=== PATIENT | male | born 1950 | race Caucasian/White ===

== ENCOUNTER 2022-10-02 08:43 | Observation (INO) ==
[2022-10-02] MEDS ORDERED: NS 0.9% 1000 ml BAG 1,000 ML IV ONE ×3 (10:13→13:31)
[2022-10-02] MEDS ORDERED: Dextrose 50% Syringe 50 ml 25 GM/50 ML SYRINGE IV PUSH PRN ×3 (10:18→15:29)
[2022-10-02 10:43] LABS: ABS Eosinophils 0.1 10^3/ul (0-0.6); ABS Lymphocytes 1.4 10^3/ul (1.0-4.8); ABS Monocytes 0.4 10^3/ul (0-0.8); ABS Neutrophils 4.6 10^3/ul (1.5-7.7); Eosinophil % 0.9 %; Hematocrit 38 % (42-52); Hemoglobin 12.3 g/dL (14.0-18.0); Lymphocyte % 21.9 %; Mean Corpuscular HGB Conc 33 g/dL (31-36); Mean Corpuscular Hemoglobin 30 pg (27-31); Mean Corpuscular Volume 91 fL (80-94); Mean Platelet Volume 8.3 fL (7.4-10.4); Platelet Count 291 10^3/uL (150-450); Red Blood Count 4.14 10^6 /uL (4.18-5.48); Red Cell Distribution Width 13 % (10-15); Venous Bicarbonate HCO3 25.6 mmol/L (24-28); White Blood Count 6.6 10^3/uL (3.5-10.8)
[2022-10-02] MEDS ORDERED: Insulin Infusion 100unit/100mL 100 UNIT/100 ML BAG IV SCH (11:00)
[2022-10-02 11:40] LABS: Urine Appearance Cloudy; Urine Bilirubin Negative (Negative); Urine Blood Negative (Negative); Urine Color Straw; Urine Glucose 3+(>=500 mg/dL) (Negative); Urine Ketones Negative (Negative); Urine Nitrite Negative (Negative); Urine Protein Negative (Negative); Urine Specific Gravity 1.025 (1.002-1.030); Urine Urobilinogen Negative (Negative)
[2022-10-02 11:40] LABS: ALT 17 U/L (7-52); AST 16 U/L (13-39); Albumin 3.4 g/dL (3.2-5.2); Albumin/Globulin Ratio 1.1 (1-3); Alcohol, S < 13 mg/dL (<13); Alkaline Phosphatase 87 U/L (35-149); Anion Gap 5 mmol/L (2-11); Blood Urea Nitrogen 11 mg/dL (6-24); C Reactive Protein 20.96 mg/L (<8.01); CO2 Carbon Dioxide 28 mmol/L (22-32); Calcium 9.4 mg/dL (8.6-10.3); Chloride 93 mmol/L (101-111); Lipase 33 U/L (11.0-82.0); Magnesium 1.9 mg/dL (1.9-2.7); Potassium 4.6 mmol/L (3.5-5.0); Sodium 126 mmol/L (135-145); Total Protein 6.4 g/dL (6.4-8.9); eGFR CKD-EPI 49.8 (>60)
[2022-10-02 11:54] LABS: Glucose 711 mg/dL (70-100)
[2022-10-02 12:07] LABS: Urine Bacteria Absent (Absent); Urine Red Blood Cell 1+(3-5/hpf) (Absent); Urine Squamous Epithelial Cell Present (Absent); Urine White Blood Cell 1+(6-10/hpf) (Absent)
[2022-10-02 12:47] LABS: Osmolality Serum 309 mOsm/kg (275-295)
[2022-10-02] MEDS: KCL 20 MEQ/100 ML IVPREMIX 20 MEQ/100 ML BAG IV SCH ×2 (13:05→14:55)
[2022-10-02] MEDS ORDERED: Insulin GLARGINE 100 un/ml 10 ml VIAL SUBCUT ONE (15:16)
[2022-10-02] MEDS ORDERED: Thiamine 100 MG/ML 2 ml VIAL (200 mg) IM ONE (15:18)
[2022-10-02 16:01] LABS: Folate 8.69 ng/mL (5.90-24.80)
[2022-10-02 16:02] LABS: Vitamin B12 1320 pg/mL (180-914)
[2022-10-02 16:45] LABS: Glucose Confirmatory 482 mg/dL (70-100)
[2022-10-02] MEDS: Enoxaparin 30 MG/0.3 ML SYR SUBCUT SCH (17:04)
[2022-10-02] MEDS: Multivitamins/Minerals TAB PO SCH (18:07)
[2022-10-02 20:56] LABS: Calcium 7.9 mg/dL (8.6-10.3); Creatinine, Serum 1.19 mg/dL (0.67-1.17); Potassium 3.7 mmol/L (3.5-5.0); eGFR CKD-EPI 65.7 (>60)
[2022-10-03] MEDS ORDERED: Insulin GLARGINE 100 un/ml 10 ml VIAL SUBCUT SCH (09:00)
[2022-10-03] MEDS: Insulin GLARGINE 100 un/ml 10 ml VIAL SUBCUT SCH (09:14)
[2022-10-03] MEDS: Multivitamins/Minerals TAB PO SCH (09:14)
[2022-10-03 11:36] LABS: Calcium 8.6 mg/dL (8.6-10.3); Creatinine, Serum 1.37 mg/dL (0.67-1.17); Potassium 4.5 mmol/L (3.5-5.0); eGFR CKD-EPI 55.5 (>60)
[2022-10-03] MEDS: Enoxaparin 30 MG/0.3 ML SYR SUBCUT SCH (15:12)
[2022-10-03] MEDS ORDERED: Insulin GLARGINE 100 un/ml 10 ml VIAL SUBCUT ONE (17:45)
[2022-10-04 08:30] LABS: ABS Eosinophils 0.1 10^3/ul (0-0.6); ABS Lymphocytes 2.3 10^3/ul (1.0-4.8); ABS Monocytes 0.5 10^3/ul (0-0.8); ABS Neutrophils 4.1 10^3/ul (1.5-7.7); Eosinophil % 1.4 %; Hematocrit 37 % (42-52); Hemoglobin 12.4 g/dL (14.0-18.0); Lymphocyte % 32.9 %; Mean Corpuscular HGB Conc 33 g/dL (31-36); Mean Corpuscular Hemoglobin 30 pg (27-31); Mean Corpuscular Volume 90 fL (80-94); Mean Platelet Volume 8.4 fL (7.4-10.4); Platelet Count 312 10^3/uL (150-450); Red Blood Count 4.15 10^6 /uL (4.18-5.48); Red Cell Distribution Width 13 % (10-15)
[2022-10-04 09:01] LABS: Creatinine, Serum 1.3 mg/dL (0.67-1.17); Potassium 4.2 mmol/L (3.5-5.0); eGFR CKD-EPI 59.1 (>60)
[2022-10-04] MEDS ORDERED: Insulin GLARGINE 100 un/ml 10 ml VIAL SUBCUT ONE (09:21)
[2022-10-04] MEDS: Multivitamins/Minerals TAB PO SCH (09:56)
[2022-10-04] MEDS: Insulin GLARGINE 100 un/ml 10 ml VIAL SUBCUT SCH (09:57)
[2022-10-04] MEDS ORDERED: Enoxaparin 40 MG/0.4 ML SYR SUBCUT SCH (16:00)
[2022-10-04 16:33] VITALS: BP 0/0
[2022-10-05] MEDS ORDERED: Insulin GLARGINE 100 un/ml 10 ml VIAL SUBCUT SCH (09:00)
== END 2022-10-04 16:35 | disposition home or self-care (01) ==
LOC: ED 08:43 → EDHOLD 08:43 → SUATTDRO 15:10 → EDHOLD 10-03 07:47
PROVIDERS: ADMIT Internal Medicine; ATTEND Internal Medicine

== ENCOUNTER 2022-10-09 09:34 | Inpatient (IN) ==
[2022-10-09] MEDS ORDERED: NS 0.9% 1000 ml BAG 1,000 ML IV ONE ×2 (11:03→13:01)
[2022-10-09 11:43] LABS: ABS Neutrophils 8.8 10^3/ul (1.5-7.7); Eosinophil % 0.2 %; Hematocrit 41 % (42-52); Lymphocyte % 17.1 %; Mean Corpuscular HGB Conc 32 g/dL (31-36); Mean Corpuscular Hemoglobin 29 pg (27-31); Mean Corpuscular Volume 92 fL (80-94); Mean Platelet Volume 8.5 fL (7.4-10.4); Platelet Count 386 10^3/uL (150-450); Red Blood Count 4.44 10^6 /uL (4.18-5.48); Red Cell Distribution Width 14 % (10-15); White Blood Count 11.9 10^3/uL (3.5-10.8)
[2022-10-09 12:27] LABS: Urine Appearance Clear; Urine Bilirubin Negative (Negative); Urine Blood 3+ (Negative); Urine Color Yellow; Urine Glucose 3+(>=500 mg/dL) (Negative); Urine Ketones 2+ (Negative); Urine Nitrite Negative (Negative); Urine Protein 2+(100 mg/dL) (Negative); Urine Specific Gravity 1.024 (1.002-1.030); Urine Urobilinogen Negative (Negative)
[2022-10-09 12:29] LABS: ALT 34 U/L (7-52); AST 66 U/L (13-39); Albumin 3.8 g/dL (3.2-5.2); Albumin/Globulin Ratio 1.2 (1-3); Alkaline Phosphatase 75 U/L (35-149); Anion Gap 17 mmol/L (2-11); Blood Urea Nitrogen 16 mg/dL (6-24); CO2 Carbon Dioxide 20 mmol/L (22-32); Calcium 9.9 mg/dL (8.6-10.3); Chloride 102 mmol/L (101-111); Creatinine, Serum 1.46 mg/dL (0.67-1.17); Globulin 3.3 g/dL (2-4); Glucose 203 mg/dL (70-100); Lipase 17 U/L (11.0-82.0); Magnesium 2.1 mg/dL (1.9-2.7); Sodium 139 mmol/L (135-145); Total Protein 7.1 g/dL (6.4-8.9); eGFR CKD-EPI 51.4 (>60)
[2022-10-09 12:43] LABS: TSH Ultra Thyroid Stim Horm 0.33 mcIU/mL (0.34-5.60)
[2022-10-09 12:46] LABS: Creatine Kinase 2734 U/L (10-223)
[2022-10-09 12:57] LABS: Urine Bacteria Absent (Absent); Urine Granular Casts Present (Absent); Urine Red Blood Cell Trace(0-2/hpf) (Absent); Urine Squamous Epithelial Cell Present (Absent); Urine White Blood Cell Trace(0-5/hpf) (Absent)
[2022-10-09 14:05] LABS: Alcohol, S < 13 mg/dL (<13)
[2022-10-09] MEDS: Enoxaparin 40 MG/0.4 ML SYR SUBCUT SCH (15:19)
[2022-10-09] MEDS: Insulin GLARGINE 100 un/ml 10 ml VIAL SUBCUT SCH (20:47)
[2022-10-10] MEDS: NS 0.9% 1000 ml BAG 1,000 ML IV SCH ×2 (02:51→10:21)
[2022-10-10 06:36] LABS: Calcium 8.6 mg/dL (8.6-10.3); Creatinine, Serum 1.46 mg/dL (0.67-1.17); Potassium 3.7 mmol/L (3.5-5.0); eGFR CKD-EPI 51.4 (>60)
[2022-10-10 08:38] LABS: ABS Eosinophils 0.1 10^3/ul (0-0.6); ABS Lymphocytes 2.8 10^3/ul (1.0-4.8); ABS Monocytes 0.7 10^3/ul (0-0.8); ABS Neutrophils 4.3 10^3/ul (1.5-7.7); Eosinophil % 1.2 %; Hematocrit 33 % (42-52); Hemoglobin 10.8 g/dL (14.0-18.0); Lymphocyte % 35.5 %; Mean Corpuscular HGB Conc 33 g/dL (31-36); Mean Corpuscular Hemoglobin 29 pg (27-31); Mean Corpuscular Volume 90 fL (80-94); Mean Platelet Volume 8.6 fL (7.4-10.4); Nucleated Red Blood Cells % 0.1; Platelet Count 312 10^3/uL (150-450); Red Blood Count 3.69 10^6 /uL (4.18-5.48); Red Cell Distribution Width 14 % (10-15)
[2022-10-10] MEDS: Enoxaparin 40 MG/0.4 ML SYR SUBCUT SCH (12:47)
[2022-10-10] MEDS: Insulin GLARGINE 100 un/ml 10 ml VIAL SUBCUT SCH (20:27)
[2022-10-11 06:31] LABS: Creatinine, Serum 1.26 mg/dL (0.67-1.17); Potassium 3.8 mmol/L (3.5-5.0); eGFR CKD-EPI 61.4 (>60)
[2022-10-11] MEDS: Enoxaparin 40 MG/0.4 ML SYR SUBCUT SCH (12:44)
[2022-10-11] MEDS: Insulin GLARGINE 100 un/ml 10 ml VIAL SUBCUT SCH (20:39)
[2022-10-12 08:47] LABS: Rapid COVID-19 Molecular Undetected (Undetected)
[2022-10-12 09:08] LABS: Calcium 9.4 mg/dL (8.6-10.3); Creatinine, Serum 1.3 mg/dL (0.67-1.17); eGFR CKD-EPI 59.1 (>60)
[2022-10-12 09:39] VITALS: BP 123/69
== END 2022-10-12 11:00 | DRG 558 ==
LOC: EDHOLD 09:34 → ED 09:34 → SUATTDRO 13:07 → EDHOLD 15:47 → MED 16:36
PROVIDERS: ADMIT Student in an Organized Health Care Education/Training Program; ATTEND Internal Medicine

== ENCOUNTER 2024-04-11 13:19 | Observation (INO) ==
[2024-04-11] MEDS: Lactated Ringers 1000 ml BAG IV.FLUID IV ONE ×2 (14:05→15:28)
[2024-04-11 14:07] LABS: Venous Bicarbonate HCO3 24.4 mmol/L (24-28)
[2024-04-11 14:10] LABS: ABS Basophils 0.1 10^3/uL (0.0-0.1); ABS Eosinophils 0.2 10^3/uL (0.0-0.5); ABS Lymphocytes 2.3 10^3/uL (1.0-4.8); ABS Monocytes 0.6 10^3/uL (0.0-1.1); ABS Neutrophils 5.8 10^3/uL (1.5-7.6); Eosinophil % 2.1 %; Hematocrit 44.1 % (38-53); Hemoglobin 15.2 g/dL (13.2-16.3); Lymphocyte % 25.4 %; Mean Corpuscular Hemoglobin 31.1 pg (27-33); Mean Corpuscular Hgb Conc 34.3 g/dL (31-36); Mean Corpuscular Volume 90.7 fL (80-97); Mean Platelet Volume 8.7 fL (7.5-11.2); Platelet Count 306 10^3/uL (150-450); Red Blood Count 4.87 10^6/uL (4.06-5.63); Red Cell Distribution Width 13.2 % (12-17)
[2024-04-11 14:22] LABS: INR 0.91 (0.85-1.14)
[2024-04-11 15:03] LABS: Albumin 4.2 g/dL (3.2-5.2); Albumin/Globulin Ratio 1.2 (1-3); Calcium 10.3 mg/dL (8.6-10.3); Creatinine, Serum 1.83 mg/dL (0.67-1.17); Globulin 3.5 g/dL (2-4); Potassium 4.5 mmol/L (3.5-5.0); Total Bilirubin 0.4 mg/dL (0.2-1.0); Total Protein 7.7 g/dL (6.4-8.9)
[2024-04-11 15:30] LABS: Magnesium 1.9 mg/dL (1.9-2.7)
[2024-04-11 15:49] LABS: High Sensitivity Troponin 1 Hr 8 pg/mL (<20)
[2024-04-11 18:53] LABS: Calcium 9.1 mg/dL (8.6-10.3); Creatinine, Serum 1.54 mg/dL (0.67-1.17); Potassium 3.8 mmol/L (3.5-5.0); eGFR CKD-EPI 47.9 (>60)
[2024-04-11] MEDS ORDERED: Dextrose 50% Syringe 50 ml 25 GM/50 ML SYRINGE IV PUSH PRN ×2 (21:38→22:27)
[2024-04-11] MEDS: Heparin 5000 UNITS/ML 1 mL VIAL SUBCUT SCH (22:13)
[2024-04-11] MEDS: Insulin GLARGINE 100 un/ml 10 ml VIAL SUBCUT ONE (22:15)
[2024-04-11 22:20] LABS: Glucose Confirmatory 417 mg/dL (70-100)
[2024-04-12 06:11] LABS: Calcium 9.2 mg/dL (8.6-10.3); Creatinine, Serum 1.52 mg/dL (0.67-1.17); Magnesium 1.8 mg/dL (1.9-2.7); Phosphorus 3.3 mg/dL (2.5-5.0); eGFR CKD-EPI 48.7 (>60)
[2024-04-12] MEDS: Brimonidine P 0.15%(NF) OPH SOL 5 ML BTL BOTH EYES SCH (09:25)
[2024-04-12 10:05] VITALS: BP 132/82
[2024-04-12 13:17] LABS: Glucose Confirmatory 416 mg/dL (70-100)
[2024-04-12] MEDS ORDERED: Al Hydrox/Mg Hydrox/Simet LIQ 30 ML UDC PO PRN (14:37)
[2024-04-12] MEDS ORDERED: Insulin GLARGINE 100 un/ml 10 ml VIAL SUBCUT SCH ×2 (21:00)
== END 2024-04-12 15:55 | disposition home or self-care (01) ==
LOC: ED 13:19 → EDHOLD 13:19 → SSU 23:06
PROVIDERS: ADMIT Hospitalist; ATTEND Hospitalist